=== PATIENT | female | born 1960 | race Caucasian/White ===

== ENCOUNTER 2017-09-04 11:29 | Emergency (ER) | payer BC ==
[~2017-09-04] VITALS: Ht 162.6 cm; Wt 65.2 kg
[2017-09-04] MEDS ORDERED: ketorolac trometh inj. 60 MG/2 ML VIAL IM ONE (15:55)
[2017-09-04] MEDS ORDERED: SUMAtriptan succ. 6 MG/0.5ml vial SQ ONE (15:55)
[2017-09-04] MEDS ORDERED: ondansetron 4mg rapidly disintigrating tab PO ONE (15:55)
[2017-09-04] MEDS ORDERED: proCHLORperazine 10 MG/2 ml inj IM ONE (15:55)
[2017-09-04 18:03] VITALS: BP 181/110
== END 2017-09-04 18:04 | disposition home or self-care (01) ==
LOC: ER 11:30
DX: R51 Headache (principal); F17.200 Nicotine dependence, unspecified, uncomplicated
CPT/HCPCS: 36415; 70450; 85651; 96372; 99285; J0780; J1885; J3030